=== PATIENT | male | born 1960 | race Caucasian/White ===

== ENCOUNTER 2016-09-30 04:00 | Inpatient (IN) | payer MEDICARE, OTHER ==
[~2016-09-30] VITALS: Ht 185.4 cm; Wt 89.4 kg
[2016-09-30] MEDS ORDERED: DUONEB INH ONE (04:24)
[2016-09-30] MEDS ORDERED: CEFTRIAXONE 1 GM VIAL ONE (06:15)
[2016-09-30] MEDS ORDERED: SODIUM CHLORIDE 0.9% 100 ML IV ONE (06:16)
[2016-09-30] MEDS ORDERED: SALINE FLUSH 10 ML FLUSH PRN (06:55)
[2016-09-30] MEDS ORDERED: MIDAZOLAM 2 MG/2 ML INJ IV ONE (07:39)
[2016-09-30] MEDS ORDERED: LIDOCAINE 2% SYR 5 ML IV ONE ×2 (07:39→10:18)
[2016-09-30] MEDS ORDERED: AZITHROMYCIN 500 MG in SODIUM CHLORIDE 0.9% 250 ML IV ONE (09:00)
[2016-09-30] MEDS: GUAIFENESIN ER 600 MG TABCR PO SCH ×2 (09:20→20:23)
[2016-09-30] MEDS: SALINE FLUSH 10 ML FLUSH SCH ×2 (09:20→20:23)
[2016-09-30] MEDS: PANTOPRAZOLE 40 MG TAB PO SCH (09:20)
[2016-09-30] MEDS: ENOXAPARIN 40 MG/0.4 ML SYR SUBQ SCH (09:21)
[2016-09-30] MEDS ORDERED: PROPOFOL 50ML PER ML IV ONE (10:18)
[2016-09-30] MEDS ORDERED: KETAMINE INJ 50 MG/ML VIAL IV ONE (10:18)
[2016-09-30 10:49] VITALS: BP_SYST 138; RESP 18; TEMP 98.6
[2016-09-30 12:19] VITALS: RESP 20
[2016-09-30] MEDS: DUONEB INH SCH ×3 (12:19→18:43)
[2016-09-30 16:01] VITALS: BP_SYST 132; RESP 20; TEMP 98.7
[2016-09-30] MEDS: NEB-NACL 3% 4 ML NEBU INH SCH (18:43)
[2016-09-30 20:10] VITALS: BP_SYST 134; RESP 20; TEMP 98
[2016-09-30] MEDS ORDERED: TRAZODONE 50 MG TAB PO ONE (21:00)
[2016-09-30 23:45] VITALS: BP_SYST 134; RESP 20; TEMP 98.1
[2016-10-01] VITALS (20 sets, daily range): BP systolic 79–144; RESP 18–40; TEMP 96.8–97.8
[2016-10-01] MEDS: NEB-NACL 3% 4 ML NEBU INH SCH ×5 (00:30→22:25)
[2016-10-01] MEDS: SODIUM CHLORIDE 0.9% FLUSH BAG 500 ML IV SCH (05:53)
[2016-10-01] MEDS: DUONEB INH SCH ×4 (06:06→22:27)
[2016-10-01] MEDS: SALINE FLUSH 10 ML FLUSH SCH ×2 (08:00→19:43)
[2016-10-01] MEDS ORDERED: METOPROLOL 5 MG/5 ML VIAL IV ONE (10:10)
[2016-10-01] MEDS: PANTOPRAZOLE 40 MG TAB PO SCH (11:26)
[2016-10-01] MEDS: AZITHROMYCIN 250 MG TAB PO SCH (11:27)
[2016-10-01] MEDS: CEFTRIAXONE 1 GM in SODIUM CHLORIDE 0.9% 50 ML IV SCH (11:27)
[2016-10-01] MEDS: ENOXAPARIN 40 MG/0.4 ML SYR SUBQ SCH (11:27)
[2016-10-01] MEDS: GUAIFENESIN ER 600 MG TABCR PO SCH ×2 (11:27→20:21)
[2016-10-01] MEDS: GABAPENTIN 300 MG CAP PO SCH ×4 (11:45→20:00)
[2016-10-01] MEDS: ATENOLOL 25 MG TAB PO SCH ×2 (16:13→20:00)
[2016-10-01] MEDS: ASPIRIN 81 MG CHEW TAB PO SCH (16:13)
[2016-10-02] VITALS (9 sets, daily range): BP systolic 84–113; RESP 16–21; TEMP 97.2–98.2; Ht 185.4 cm; Wt 89.4 kg
[2016-10-02] MEDS: DUONEB INH SCH ×3 (05:55→18:21)
[2016-10-02] MEDS: NEB-NACL 3% 4 ML NEBU INH SCH ×3 (05:56→18:21)
[2016-10-02] MEDS: SODIUM CHLORIDE 0.9% FLUSH BAG 500 ML IV SCH (06:12)
[2016-10-02] MEDS: PANTOPRAZOLE 40 MG TAB PO SCH (06:12)
[2016-10-02] MEDS ORDERED: **NOTE TO NURSE XX SCH (08:00)
[2016-10-02] MEDS ORDERED: MISSING DOSE XX ONE ×4 (08:55→23:50)
[2016-10-02] MEDS: ENOXAPARIN 40 MG/0.4 ML SYR SUBQ SCH (08:59)
[2016-10-02] MEDS: GUAIFENESIN ER 600 MG TABCR PO SCH ×2 (08:59→22:18)
[2016-10-02] MEDS: AZITHROMYCIN 250 MG TAB PO SCH (08:59)
[2016-10-02] MEDS: ATENOLOL 25 MG TAB PO SCH ×2 (08:59→22:18)
[2016-10-02] MEDS: ASPIRIN 81 MG CHEW TAB PO SCH (08:59)
[2016-10-02] MEDS: GABAPENTIN 300 MG CAP PO SCH ×3 (08:59→22:18)
[2016-10-02] MEDS: SALINE FLUSH 10 ML FLUSH SCH ×2 (09:23→20:00)
[2016-10-02] MEDS: CEFTRIAXONE 1 GM in SODIUM CHLORIDE 0.9% 50 ML IV SCH (09:23)
[2016-10-02] MEDS ORDERED: PHARMACY TO DOSE ZOSYN IV SCH (10:35)
[2016-10-02] MEDS ORDERED: PHARMACY TO DOSE VANCOMYCIN IV SCH (10:35)
[2016-10-02] MEDS: PIPERACIL/TAZO 3.375GM/50ML 50 ML IV SCH ×2 (12:43→18:32)
[2016-10-02] MEDS: FLUCONAZOLE 100 MG TAB PO SCH (15:05)
[2016-10-02] MEDS: VANCOMYCIN 1,500 MG in SODIUM CHLORIDE 0.9% 250 ML IV SCH (15:06)
[2016-10-02] MEDS ORDERED: ACETAMINOPHEN 325 MG TAB PO PRN (17:45)
[2016-10-02] MEDS: NEB-BROVANA 15 MCG/2 ML INH SCH (18:21)
[2016-10-03] VITALS (26 sets, daily range): BP systolic 73–131; RESP 14–31; TEMP 97.6–99
[2016-10-03] MEDS: PIPERACIL/TAZO 3.375GM/50ML 50 ML IV SCH ×5 (00:18→23:38)
[2016-10-03] MEDS: DUONEB INH SCH ×4 (00:30→18:07)
[2016-10-03] MEDS: NEB-NACL 3% 4 ML NEBU INH SCH ×4 (00:31→18:07)
[2016-10-03] MEDS: SODIUM CHLORIDE 0.9% FLUSH BAG 500 ML IV SCH ×2 (02:06→22:40)
[2016-10-03] MEDS: VANCOMYCIN 1,500 MG in SODIUM CHLORIDE 0.9% 250 ML IV SCH (02:06)
[2016-10-03] MEDS: NEB-BROVANA 15 MCG/2 ML INH SCH ×2 (06:44→18:07)
[2016-10-03] MEDS ORDERED: MISSING DOSE XX ONE (08:20)
[2016-10-03] MEDS: ASPIRIN 81 MG CHEW TAB PO SCH (09:14)
[2016-10-03] MEDS: GABAPENTIN 300 MG CAP PO SCH ×3 (09:14→21:13)
[2016-10-03] MEDS: ENOXAPARIN 40 MG/0.4 ML SYR SUBQ SCH (09:14)
[2016-10-03] MEDS: PANTOPRAZOLE 40 MG TAB PO SCH (09:14)
[2016-10-03] MEDS: AZITHROMYCIN 250 MG TAB PO SCH (09:14)
[2016-10-03] MEDS: FLUCONAZOLE 100 MG TAB PO SCH (09:14)
[2016-10-03] MEDS: GUAIFENESIN ER 600 MG TABCR PO SCH ×2 (09:15→21:13)
[2016-10-03] MEDS: SALINE FLUSH 10 ML FLUSH SCH ×2 (09:15→20:00)
[2016-10-03] MEDS: ATENOLOL 25 MG TAB PO SCH ×2 (09:15→21:13)
[2016-10-03] MEDS: NEB-BUDESONIDE 0.5 MG INH SCH ×2 (11:00→18:07)
[2016-10-04] VITALS (45 sets, daily range): BP systolic 76–130; RESP 14–30; TEMP 97.1–97.9
[2016-10-04] MEDS: NEB-NACL 3% 4 ML NEBU INH SCH ×5 (00:06→23:23)
[2016-10-04] MEDS: DUONEB INH SCH ×4 (00:06→18:41)
[2016-10-04] MEDS: PIPERACIL/TAZO 3.375GM/50ML 50 ML IV SCH (05:28)
[2016-10-04] MEDS: NEB-BUDESONIDE 0.5 MG INH SCH ×2 (07:01→18:41)
[2016-10-04] MEDS: NEB-BROVANA 15 MCG/2 ML INH SCH ×2 (07:01→18:41)
[2016-10-04] MEDS ORDERED: MISSING DOSE XX ONE (07:25)
[2016-10-04] MEDS: FLUCONAZOLE 100 MG TAB PO SCH (07:35)
[2016-10-04] MEDS: AZITHROMYCIN 250 MG TAB PO SCH (07:35)
[2016-10-04] MEDS: GUAIFENESIN ER 600 MG TABCR PO SCH ×2 (07:36→21:23)
[2016-10-04] MEDS: SALINE FLUSH 10 ML FLUSH SCH ×2 (07:36→19:39)
[2016-10-04] MEDS: PANTOPRAZOLE 40 MG TAB PO SCH (07:36)
[2016-10-04] MEDS: ASPIRIN 81 MG CHEW TAB PO SCH (07:36)
[2016-10-04] MEDS: GABAPENTIN 300 MG CAP PO SCH ×3 (07:36→21:23)
[2016-10-04] MEDS: ENOXAPARIN 40 MG/0.4 ML SYR SUBQ SCH (07:37)
[2016-10-04] MEDS: ATENOLOL 25 MG TAB PO SCH ×2 (09:00→21:23)
[2016-10-04] MEDS ORDERED: PHARMACY TO DOSE XX SCH (11:05)
[2016-10-04] MEDS: AMP/SULBACTAM 3 GM in SODIUM CHLORIDE 0.9% 100 ML IV SCH ×2 (15:10→18:16)
[2016-10-04] MEDS ORDERED: LACT RINGERS 1,000 ML IV ONE (15:45)
[2016-10-04] MEDS: POTASSIUM CHLORIDE PREMIX 50 ML IV SCH ×6 (15:48→20:51)
[2016-10-04] MEDS: MAGNESIUM SULF 1 GM/100 ML 100 ML IV SCH ×2 (17:08→20:19)
[2016-10-05] VITALS (18 sets, daily range): BP systolic 92–146; RESP 13–28; TEMP 97.4–98.6
[2016-10-05] MEDS: AMP/SULBACTAM 3 GM in SODIUM CHLORIDE 0.9% 100 ML IV SCH ×5 (00:39→23:56)
[2016-10-05] MEDS: SODIUM CHLORIDE 0.9% FLUSH BAG 500 ML IV SCH (00:40)
[2016-10-05] MEDS: ATENOLOL 25 MG TAB PO SCH ×2 (07:26→20:46)
[2016-10-05] MEDS: GABAPENTIN 300 MG CAP PO SCH ×3 (07:26→20:46)
[2016-10-05] MEDS: ASPIRIN 81 MG CHEW TAB PO SCH (07:26)
[2016-10-05] MEDS: PANTOPRAZOLE 40 MG TAB PO SCH (07:26)
[2016-10-05] MEDS: GUAIFENESIN ER 600 MG TABCR PO SCH ×2 (07:26→20:46)
[2016-10-05] MEDS: ENOXAPARIN 40 MG/0.4 ML SYR SUBQ SCH (07:27)
[2016-10-05] MEDS: SALINE FLUSH 10 ML FLUSH SCH ×2 (07:27→20:46)
[2016-10-05] MEDS: NEB-NACL 3% 4 ML NEBU INH SCH ×4 (07:53→23:40)
[2016-10-05] MEDS: NEB-BUDESONIDE 0.5 MG INH SCH ×2 (07:53→19:12)
[2016-10-05] MEDS: DUONEB INH SCH ×3 (07:53→19:12)
[2016-10-05] MEDS: NEB-BROVANA 15 MCG/2 ML INH SCH ×2 (07:53→19:12)
[2016-10-05] MEDS ORDERED: MISSING DOSE XX ONE (18:25)
[2016-10-06 05:06] VITALS: BP_SYST 140; RESP 18; TEMP 97.4
[2016-10-06] MEDS: AMP/SULBACTAM 3 GM in SODIUM CHLORIDE 0.9% 100 ML IV SCH ×2 (06:09→11:23)
[2016-10-06] MEDS: PANTOPRAZOLE 40 MG TAB PO SCH (06:09)
[2016-10-06] MEDS: SODIUM CHLORIDE 0.9% FLUSH BAG 500 ML IV SCH (06:10)
[2016-10-06] MEDS: DUONEB INH SCH ×2 (06:19→12:01)
[2016-10-06] MEDS: NEB-NACL 3% 4 ML NEBU INH SCH ×3 (06:19→18:30)
[2016-10-06] MEDS: NEB-BUDESONIDE 0.5 MG INH SCH (06:19)
[2016-10-06] MEDS: NEB-BROVANA 15 MCG/2 ML INH SCH (06:19)
[2016-10-06 07:27] VITALS: BP_SYST 133; RESP 20; TEMP 97.6
[2016-10-06] MEDS: SALINE FLUSH 10 ML FLUSH SCH (11:13)
[2016-10-06] MEDS: GABAPENTIN 300 MG CAP PO SCH (11:13)
[2016-10-06] MEDS: GUAIFENESIN ER 600 MG TABCR PO SCH (11:14)
[2016-10-06] MEDS: ATENOLOL 25 MG TAB PO SCH (11:14)
[2016-10-06] MEDS: ENOXAPARIN 40 MG/0.4 ML SYR SUBQ SCH (11:14)
[2016-10-06] MEDS: ASPIRIN 81 MG CHEW TAB PO SCH (11:14)
[2016-10-06 11:23] VITALS: BP_SYST 149; RESP 24; TEMP 97.3
[2016-10-06 11:31] VITALS: RESP 23
[2016-10-06] MEDS ORDERED: NEB-ALBUTEROL 2.5 MG/3 ML INH SCH (15:00)
== END 2016-10-06 18:57 | disposition expired | DRG 177 ==
LOC: ENRESERVDT → ENRESERVTM → ER 04:00 → EMR 07:22 → PCU 08:14 → CCU 10-02 19:24 → 4NT 10-05 11:22
PROVIDERS: ADMIT Internal Medicine; ATTEND Internal Medicine
PROC: 0B968ZX Drainage of Right Lower Lobe Bronchus, Via Natural or Artificial Opening Endoscopic, Diagnostic (ICD-10-PCS; principal; 2016-10-01 09:40)
PROC: 0BC68ZZ Extirpation of Matter from Right Lower Lobe Bronchus, Via Natural or Artificial Opening Endoscopic (ICD-10-PCS; 2016-10-04)
DX: J15.6 Pneumonia due to other Gram-negative bacteria (principal); J96.22 Acute and chronic respiratory failure with hypercapnia; G71.0 Muscular dystrophy; J98.11 Atelectasis; J96.11 Chronic respiratory failure with hypoxia; E87.2 Acidosis; G47.33 Obstructive sleep apnea (adult) (pediatric); I10 Essential (primary) hypertension; M19.90 Unspecified osteoarthritis, unspecified site; F32.9 Major depressive disorder, single episode, unspecified; M62.3 Immobility syndrome (paraplegic); R00.0 Tachycardia, unspecified; Z66 Do not resuscitate; Z91.19 Patient's noncompliance with other medical treatment and regimen; Z79.82 Long term (current) use of aspirin; Z86.718 Personal history of other venous thrombosis and embolism
CPT/HCPCS: 36415; 36600; 71010; 80048; 80053; 80069; 82040; 82553; 82565; 83605; 83735; 83880; 84100; 84484; 84520; 85025; 85379; 87040; 87804; 88108; 93005; 94640; 94660; 94667; 94668; 94799; 96365; 99223; 99232; 99233; 99238; 99291